=== PATIENT | male | born 1965 | race Caucasian/White ===

== ENCOUNTER 2017-03-27 12:18 | Emergency (ER) | payer OTHER ==
[~2017-03-27] VITALS: Ht 180.3 cm; Wt 86.2 kg
[~2017-03-27 12:18] MED LIST: ACETAMINOPHEN-1 EAC1 PO; APAP/CODEINE ELI5 M1 PO; AZITHROMYCIN 2250 MG PO; FLONASE 0.05%50 MCG NASAL; HYDROCODONE-AP1 EAC6 PO; IBUPROFEN 400400 M1 PO; IBUPROFEN 800800 M1 PO; LIDOCAINE VISC100 M1 SWISH&SPIT; LIORESAL 10 MG10 MG PO; MEDROLDOSEPACK PO; NOHOMEMEDICATIONS; NORCO 5-325 TA1 EACH PO; PENICILLIN V P500 MG PO; PENICILLIN VK500 M1 PO; PENICILLIN VK500 MG PO; PERCOCET 5-3251 EACH PO; PREDNISONE 20 M20 M1 PO; PROAIR HFA8.5 GM INH; PROAIR HFA8.5 GM PO; TESSALON PERLE100 MG PO; TUSSIONEX PENN473 ML PO; ULTRAM50 MG PO; VENTOLIN HFA 1818 GM INH; ZPAK PO
[2017-03-27] MEDS ORDERED: CHERATUSSIN AC118 ML PO (13:01)
[2017-03-27] MEDS ORDERED: ZPAK PO (13:01)
[2017-03-27 13:12] VITALS: BP 144/73
== END 2017-03-27 13:12 | disposition home or self-care (01) ==
LOC: M.ERS 12:18
DX: J06.9 Acute upper respiratory infection, unspecified (principal); R05 Cough; R50.9 Fever, unspecified

== ENCOUNTER 2017-06-11 09:39 | Emergency (ER) | payer OTHER ==
[~2017-06-11] VITALS: Ht 180.3 cm; Wt 81.7 kg
[~2017-06-11 09:39] MED LIST changes: +CHERATUSSIN AC118 ML PO
[2017-06-11] MEDS ORDERED: FLONASE 0.05%50 MCG NASAL (10:13)
[2017-06-11] MEDS ORDERED: PROAIR HFA8.5 GM INH (10:13)
[2017-06-11] MEDS ORDERED: ZPAK PO (10:13)
[2017-06-11] MEDS ORDERED: MEDROLDOSEPACK PO (10:13)
[2017-06-11 10:26] VITALS: BP 153/84
== END 2017-06-11 10:28 | disposition home or self-care (01) ==
LOC: M.ERS 09:39
DX: J34.89 Other specified disorders of nose and nasal sinuses (principal)

== ENCOUNTER 2018-02-06 10:07 | Emergency (ER) | payer OTHER ==
[~2018-02-06] VITALS: Ht 180.3 cm; Wt 90.7 kg
[2018-02-06] MEDS ORDERED: MEDROLDOSEPACK PO (10:23)
[2018-02-06] MEDS ORDERED: ZPAK PO (10:23)
[2018-02-06] MEDS ORDERED: PROMETHAZINE-C473 ML PER TUBE (10:23)
[2018-02-06 10:36] VITALS: BP 136/69
== END 2018-02-06 10:36 | disposition home or self-care (01) ==
LOC: M.ERS 10:07
DX: J20.9 Acute bronchitis, unspecified (principal)

== ENCOUNTER 2018-07-18 11:23 | Emergency (ER) | payer OTHER ==
[~2018-07-18] VITALS: Ht 180.3 cm; Wt 90.7 kg
[~2018-07-18 11:23] MED LIST changes: +PROMETHAZINE-C473 ML PER TUBE
[2018-07-18] MEDS ORDERED: NORCO 5-325 TA1 EAC1 PO (13:32)
[2018-07-18] MEDS ORDERED: MOBIC7.5 M1 PO (13:32)
[2018-07-18 13:48] VITALS: BP 163/89
== END 2018-07-18 13:48 | disposition home or self-care (01) ==
LOC: M.ERS 11:23
DX: M53.3 Sacrococcygeal disorders, not elsewhere classified (principal); W11.XXXA Fall on and from ladder, initial encounter; Y92.89 Other specified places as the place of occurrence of the external cause; Y93.89 Activity, other specified; Y99.8 Other external cause status

== ENCOUNTER 2018-08-22 18:28 | Emergency (ER) | payer OTHER ==
[~2018-08-22] VITALS: Ht 180.3 cm; Wt 90.7 kg
[~2018-08-22 18:28] MED LIST changes: +MOBIC7.5 M1 PO; +NORCO 5-325 TA1 EAC1 PO
[2018-08-22 18:42] VITALS: BP 158/83
[2018-08-22] MEDS ORDERED: NABUMETONE 750750 M1 PO (19:05)
== END 2018-08-22 19:15 | disposition home or self-care (01) ==
LOC: M.ERS 18:28
DX: M53.3 Sacrococcygeal disorders, not elsewhere classified (principal)

== ENCOUNTER 2019-01-02 11:34 | Emergency (ER) | payer OTHER ==
[~2019-01-02] VITALS: Ht 180.3 cm; Wt 90.7 kg
[~2019-01-02 11:34] MED LIST changes: +NABUMETONE 750750 M1 PO
[2019-01-02 11:40] VITALS: BP 160/87
[2019-01-02] MEDS ORDERED: NABUMETONE 750750 M1 PO (11:45)
[2019-01-02] MEDS ORDERED: LIDOCAINE VISC100 ML SWISH&SPIT (11:45)
[2019-01-02] MEDS ORDERED: PENICILLIN V P500 MG PO (11:45)
== END 2019-01-02 12:11 | disposition home or self-care (01) ==
LOC: M.ERS 11:34
DX: S02.5XXA Fracture of tooth (traumatic), initial encounter for closed fracture (principal); X58.XXXA Exposure to other specified factors, initial encounter; Y92.89 Other specified places as the place of occurrence of the external cause; Y93.89 Activity, other specified; Y99.8 Other external cause status

== ENCOUNTER 2019-05-28 14:24 | Emergency (ER) | payer OTHER ==
[~2019-05-28] VITALS: Ht 180.3 cm; Wt 90.7 kg
[~2019-05-28 14:24] MED LIST changes: +LIDOCAINE VISC100 ML SWISH&SPIT
[2019-05-28] MEDS ORDERED: LIDODERM1 EACH TRANSDERM (15:08)
[2019-05-28] MEDS ORDERED: NAPROSYN500 MG PO (15:08)
[2019-05-28 15:28] VITALS: BP 138/87
== END 2019-05-28 15:29 | disposition home or self-care (01) ==
LOC: M.ERS 14:24
DX: S30.0XXA Contusion of lower back and pelvis, initial encounter (principal); W10.8XXA Fall (on) (from) other stairs and steps, initial encounter; Y93.89 Activity, other specified; Y92.89 Other specified places as the place of occurrence of the external cause; Y99.8 Other external cause status